=== PATIENT | female | born 1965 | race Caucasian/White ===

== ENCOUNTER → 2017-05-17 | Outpatient (CLI) | payer BC | LOC: RAD 02:53 | DX: Z12.31 Encounter for screening mammogram for malignant neoplasm of breast (principal) ==

== ENCOUNTER → 2018-05-22 | Outpatient (CLI) | payer BC | LOC: RAD 02:37 | DX: Z12.31 Encounter for screening mammogram for malignant neoplasm of breast (principal) ==

== ENCOUNTER → 2019-06-11 | Outpatient (CLI) | payer BC | LOC: RAD 14:04 | DX: Z12.31 Encounter for screening mammogram for malignant neoplasm of breast (principal) ==